=== PATIENT | female | born 1995 | race American Indian/Alaskan Native ===

== ENCOUNTER 2021-03-11 10:48 | Emergency (ER) | payer OTHER ==
--- NOTE | 2021-03-11 15:11 | Emergency Department Report ---
ED General Adult HPI - General Chief complaint: Chest Pain Stated complaint: BREAST PAIN Time Seen by Provider: 03/11/21 11:13 Source: patient, family Mode of arrival: Ambulatory Limitations: No Limitations - History of Present Illness Initial comments: tender breast mups for few wekes, марина nd off but not getting better no FH of br ca, not oon brth control not currently on her period -: Gradual, week(s) Severity scale (0 -10): 8 Quality: aching Consistency: intermittent Improves with: none - Related Data Previous Rx's Medication Instructions Recorded Last Taken Type Ketorolac [Toradol] 10 mg PO Q6H PRN #14 03/11/21 Unknown Rx cephALEXin [Keflex] 500 mg PO Q12HR #20 cap 03/11/21 Unknown Rx Allergies Allergy/AdvReac Type Severity Reaction Status Date / Time No Known Allergies Allergy Verified 03/11/21 11:31 ED Review of Systems ROS: Stated complaint: BREAST PAIN Other details as noted in HPI Constitutional: denies: chills, fever Eyes: denies: eye pain, eye discharge, vision change ENT: denies: ear pain, throat pain Respiratory: denies: cough, shortness of breath, wheezing Cardiovascular: denies: chest pain, palpitations Endocrine: no symptoms reported Gastrointestinal: denies: abdominal pain, nausea, diarrhea Genitourinary: denies: urgency, dysuria, discharge Musculoskeletal: denies: back pain, joint swelling, arthralgia Skin: denies: rash, lesions Neurological: denies: headache, weakness, paresthesias Psychiatric: denies: anxiety, depression Hematological/Lymphatic: denies: easy bleeding, easy bruising ED Past Medical Hx - Past Medical History Previous Medical History?: No Hx Hypertension: No Hx CVA: No - Medications Home Medications: Home Medications Medication Instructions Recorded Confirmed Last Taken Type Ketorolac [Toradol] 10 mg PO Q6H PRN #14 03/11/21 Unknown Rx cephALEXin [Keflex] 500 mg PO Q12HR #20 cap 03/11/21 Unknown Rx ED Physical Exam - General Limitations: No Limitations General appearance: alert, in no apparent distress - Head Head exam: Present: atraumatic, normocephalic - Eye Eye exam: Present: normal appearance - ENT ENT exam: Present: mucous membranes moist - Neck Neck exam: Present: normal inspection - Respiratory Respiratory exam: Present: normal lung sounds bilaterally, other (breast , multiple tender cystic structures). Absent: respiratory distress - Cardiovascular Cardiovascular Exam: Present: regular rate, normal rhythm. Absent: systolic murmur, diastolic murmur, rubs, gallop - GI/Abdominal GI/Abdominal exam: Present: soft, normal bowel sounds - Extremities Exam Extremities exam: Present: normal inspection - Back Exam Back exam: Present: normal inspection - Neurological Exam Neurological exam: Present: alert, oriented X3 - Psychiatric Psychiatric exam: Present: normal affect, normal mood - Skin Skin exam: Present: warm, dry, intact, normal color. Absent: rash ED Course Vital Signs 03/11/21 03/11/21 11:11 11:30 Temperature 98.7 F Pulse Rate 78 Respiratory 20 Rate Blood Pressure 117/71 [Right] O2 Sat by Pulse 100 99 Oximetry - Reevaluation(s) Reevaluation #1: 03/11/21 15:08 US showed fibricytic disease , no evidence of maignancy , LNs noted w ill give antibitics and refer for OP mammogram Critical care attestation.: If time is entered above; I have spent that time in minutes in the direct care of this critically ill patient, excluding procedure time. ED Disposition Clinical Impression: Mastalgia, Fibrocystic breast Disposition: HOME / SELF CARE / HOMELESS Is pt being admited?: No Does the pt Need Aspirin: No Condition: Stable Instructions: Nonspecific Chest Pain, Adult Referrals: PRIMARY CARE, [Primary Care Provider] - 3-5 Days
[2021-03-11 15:17] VITALS: BP 115/61
--- NOTE | 2021-03-11 19:01 | Ultrasound Report ---
EXAMINATION: Bilateral Complete Breast Ultrasound, 03/11/2021 INDICATION: The patient reports multiple bilateral breast lumps and pain for several weeks. COMPARISON: None. FINDINGS: Complete sonographic evaluation of all 4 quadrants and retroareolar region was performed. Right breast: Sonographic evaluation of the right breast demonstrates multiple simple and mildly comp licated cysts, the largest of which measures 1.2 cm at the 12:00 position 2 cm from the nipple. There is a normal-appearing intramammary lymph node measuring 8 mm at the 11:00 position 5 cm from the nip ple. There is no suspicious solid mass or shadowing. Left breast: Sonographic evaluation of the left breast demonstrates multiple simple and mildly compli cated cysts, the largest of which measures 0.9 cm at the 12:00 position 2 cm from the nipple. There i s no evidence of suspicious solid mass or shadowing. IMPRESSION: 1. Multiple small simple and mildly complicated cysts in both breasts as described above. Therefore, clinical correlation with patient's clinical circumstances and focal areas of palpable concern is rec ommended. Follow up recommendation: Clinical exam BI-RADS Category 2: BENIGN. A normal or "negative" report should not preclude biopsy or follow-up of a clinically suspicious find ing. Signer Name: Andreea Young MD Signed: 03/11/2021 6:56 PM Workstation Name: [id number]
--- NOTE | 2021-03-14 09:17 | Electrocardiograph Report ---
[facility] Test Date: 2021-03-11 Test Time: 11:00:01 Pat Name: YOLANDA CHEATHAM Department: Room: Gender: F Director [employer]: ELOISE : 1995 Requested By: MALIK ROSSI Order Number: [id number] Reading MD: Duncan Holden Measurements Intervals [place] Rate: 60 P: 62 MA: 124 QRS: 71 QRSD: 85 T: 38 QT: 410 QTc: 410 Interpretive Statements Sinus rhythm No previous ECG available for comparison Electronically Signed On 03-14-2021 9:16:34 EST by Duncan Holden
== END 2021-03-11 15:17 | disposition home or self-care (01) ==
LOC: ED 10:48
DX: N60.12 Diffuse cystic mastopathy of left breast (principal); N60.11 Diffuse cystic mastopathy of right breast
CPT/HCPCS: 93005; 99283